=== PATIENT | male | born 1945 | race Caucasian/White ===

== ENCOUNTER 2017-03-01 04:35 | Emergency (ER) | payer MEDICARE, BC ==
[~2017-03-01] VITALS: Ht 182.9 cm; Wt 83.3 kg
[2017-03-01 05:23] LABS: PATH.CAST-FLAG NOT PRESENT; SPERM-FLAG NOT PRESENT; SRC-FLAG NOT PRESENT; XTAL-FLAG NOT PRESENT; YLC-FLAG NOT PRESENT
[2017-03-01 06:03] VITALS: BP 117/74
== END 2017-03-01 06:30 | disposition home or self-care (01) ==
LOC: ED 06:15
DX: N30.00 Acute cystitis without hematuria (principal)
CPT/HCPCS: 51702; 81001; 87077; 87086; 87186; 99284